=== PATIENT | female | born 1980 | race Caucasian/White ===

== ENCOUNTER 2017-11-29 07:11 | Day surgery (SDC) | payer OTHER ==
[2017-11-29] MEDS ORDERED: DIPHENHYDRAMINE 50 MG CAP PO (08:00)
[2017-11-29] MEDS ORDERED: DIAZEPAM 5 MG TAB PO (08:00)
[2017-11-29] MEDS: SOD CHLORIDE 0.45% 1,000 ML IV (08:00)
[2017-11-29] MEDS ORDERED: FAMOTIDINE 20 MG TAB PO (08:00)
[2017-11-29 08:22] LABS: ADD MAN DIFF? NO
[2017-11-29 08:24] LABS: WHITE BLOOD COUNT 6.1 10^3/ul (4.8-10.8)
[2017-11-29 08:24] LABS: BASOPHILS % 0.5 % (0.0-2.0); EOSINOPHILS % 0.3 % (0.0-7.0); HEMATOCRIT 35.1 % (37.0-47.0); HEMOGLOBIN 11.8 g/dl (12.0-16.0); LYMPHOCYTES # 0.8 10^3/ul (0.8-2.9); LYMPHOCYTES % 12.5 % (15.0-51.0); MEAN CORPUSCULAR HEMOGLOBIN 26.9 pg (29.0-33.0); MEAN CORPUSCULAR HGB CONC 33.6 g/dl (32.0-37.0); MEAN PLATELET VOLUME 10.8 fl (7.4-10.4); MONOCYTE # 0.6 10^3/ul (0.3-0.9); MONOCYTES % 9.4 % (0.0-11.0); NEUTROPHIL # 4.7 10^3/ul (1.6-7.5); NEUTROPHILS % 76.8 % (39.0-77.0); PLATELET COUNT 189 10^3/UL (140-415); RED BLOOD COUNT 4.39 10^6/ul (4.20-5.40); RED CELL DISTRIBUTION WIDTH 13.4 % (11.5-14.5)
[2017-11-29] MEDS ORDERED: IODIXANOL LOCM 100 ML BTL (08:46)
[2017-11-29] MEDS ORDERED: MIDAZOLAM 1 MG/ML 2 ML INJ (08:46)
[2017-11-29] MEDS ORDERED: LIDOCAINE 1% (MDV) 20 ML INJ (08:46)
[2017-11-29] MEDS ORDERED: FENTAnyl 50 MCG/ML VIAL (08:46)
[2017-11-29] MEDS ORDERED: HEPARIN 1000 UNITS/ML 10 ML INJ (08:46)
[2017-11-29] MEDS ORDERED: VERAPAMIL 5 MG INJ (08:47)
[2017-11-29] MEDS ORDERED: NITROGLYCERIN (IC) 100 MCG/ML INJ (08:47)
[2017-11-29 08:51] LABS: ALANINE AMINOTRANSFERASE 68 IU/L (13-69); ALBUMIN 4.2 g/dl (3.3-4.9); ALBUMIN/GLOBULIN RATIO 1.31; ALKALINE PHOSPHATASE 82 IU/L (42-121); ANION GAP 21 (8-16); ASPARTATE AMINO TRANSFERASE 47 IU/L (15-46); BILIRUBIN,INDIRECT 0.5 mg/dl (0-1.1); BILIRUBIN,TOTAL 0.5 mg/dl (0.2-1.3); CARBON DIOXIDE 20 mmol/L (21-31); CHLORIDE 105 mmol/L (97-110); CHOLESTEROL 90 mg/dl (100-200); GLUCOSE 138 mg/dl (70-220); HDL CHOLESTEROL 30 mg/dl (34-82); LDL CHOLESTEROL,CALCULATED 39 mg/dl; TOTAL PROTEIN 7.4 g/dl (6.1-8.1); TRIGLYCERIDES 107 mg/dl (0-149)
[2017-11-29 08:52] LABS: BLOOD UREA NITROGEN 8 mg/dl (7-20); CALCIUM 8.7 mg/dl (8.4-10.2); CREATININE 0.75 mg/dl (0.44-1.00); POTASSIUM 3.7 mmol/L (3.5-5.1); SODIUM 142 mmol/L (135-144)
[2017-11-29 09:22] LABS: INR 1.02; PROTIME 13.5 Sec (11.9-14.9); PT RATIO 1.1
[2017-11-29 09:23] LABS: PARTIAL THROMBOPLASTIN TIME 30.8 Sec (25.0-35.0)
[2017-11-29] MEDS ORDERED: AL HYDROX/MG HYDROX/SIMETH 30 ML CUP PO (10:30)
[2017-11-29] MEDS ORDERED: ONDANSETRON 4 MG INJ IV (10:30)
[2017-11-29] MEDS: SOD CHLORIDE 0.9% 1,000 ML IV (10:58)
[2017-11-29] MEDS ORDERED: morphine 2 MG INJ (12:43)
[2017-11-29] MEDS: morphine 2 MG INJ IV (12:46)
[2017-11-29] MEDS ORDERED: ACETAMINOPHEN 325 MG TAB (13:16)
[2017-11-29] MEDS: ACETAMINOPHEN 325 MG TAB PO (13:17)
== END 2017-11-29 16:10 | disposition home or self-care (01) ==
LOC: SDS 07:11
DX: I25.10 Atherosclerotic heart disease of native coronary artery without angina pectoris (principal); R94.39 Abnormal result of other cardiovascular function study
CPT/HCPCS: 71045; 80053; 80061; 82962; 85025; 85610; 85730; 93005; 93458